=== PATIENT | male | born 1995 | race Caucasian/White ===

== ENCOUNTER 2019-10-25 10:49 | Emergency (ER) | payer OTHER ==
[~2019-10-25] VITALS: Ht 165.1 cm; Wt 73.0 kg
[2019-10-25] MEDS ORDERED: NS 1,000 ML IV ONE (11:30)
[2019-10-25 11:38] LABS: BASO % 0.3 % (0.0-1.0); EOS % 1.2 % (0.0-3.0); HEMATOCRIT 44.4 % (42.0-52.0); HEMOGLOBIN 14.8 g/dl (13.5-17.5); LYMPH # 1.3 10^3/uL (1.5-5.0); LYMPH % 40.1 % (24.0-44.0); MEAN CORPUSCULAR HEMOGLOBIN 31.1 pg (27.0-33.0); MEAN CORPUSCULAR HGB CONC 33.3 g/dl (32.0-36.5); MEAN CORPUSCULAR VOLUME 93.3 fl (80.0-96.0); MONO # 0.3 10^3/uL (0.0-0.8); MONO % 7.8 % (0.0-5.0); NEUTROPHILS # 1.6 10^3/uL (1.5-8.5); NEUTROPHILS % 50.3 % (36.0-66.0); PLATELET COUNT, AUTOMATED 202 10^3/uL (150-450); RED BLOOD COUNT 4.76 10^6/uL (4.30-6.10); WHITE BLOOD COUNT 3.2 10^3/uL (4.0-10.0)
--- NOTE | 2019-10-25 11:49 | REP ---
Clinical: Acute chest pain . Comparison: None . Findings: The mediastinum and cardiac silhouette are stable and within normal limits for portable technique. The lung barrera are clear without acute consolidation, effusion, or pneumothorax. Skeletal structures are intact. Impression: No acute cardiopulmonary process appreciated. Electronically Signed by Roland Hernandez MD 10/25/2019 11:41 A
--- NOTE | 2019-10-25 11:51 | REP ---
Clinical: Multiple syncopal episodes . Comparison: None . Findings: The ventricles, sulci, and cisterns are normal in position and appearance. Dow-white differentiation is maintained. No acute intracranial hemorrhage, mass/mass effect, pathology or trauma/injury. No evidence for acute infarction. No extra-axial fluid collection. Calvarium is intact. Paranasal sinuses and mastoid air cells are clear. Impression: Normal noncontrast head CT. No evidence for acute intracranial pathology or trauma/injury. Electronically Signed by Roland Hernandez MD 10/25/2019 11:43 A
[2019-10-25 12:08] LABS: ALBUMIN 4.2 GM/DL (3.2-5.2); ALT/SGPT 25 U/L (12-78); BILIRUBIN,DIRECT 0.1 MG/DL (0.0-0.2); BILIRUBIN,TOTAL 0.5 MG/DL (0.2-1.0); BLOOD UREA NITROGEN 10 MG/DL (7-18); CALCIUM LEVEL 8.6 MG/DL (8.5-10.1); CARBON DIOXIDE LEVEL 30 MEQ/L (21-32); CHLORIDE LEVEL 108 MEQ/L (98-107); CK-MB VALUE MASS < 1.0 NG/ML (<3.6); CPK CREATINE PHOSPHOKINASE 174 U/L (39-308); CREATININE FOR GFR 0.98 MG/DL (0.70-1.30); FREE T4 0.98 NG/DL (0.76-1.46); GLOMERULAR FILTRATION RATE > 60.0 (>60); GLUCOSE, FASTING 89 MG/DL (70-100); LIPASE 95 U/L (73-393); MB/CK RELATIVE INDEX 0.57 (< OR =4); POTASSIUM SERUM 4.3 MEQ/L (3.5-5.1); SODIUM LEVEL 141 MEQ/L (136-145); TROPONIN I < 0.02 NG/ML (< 0.10)
[2019-10-25 13:23] VITALS: BP 117/58
--- NOTE | 2019-10-25 17:38 | ECGEPIP ---
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
== END 2019-10-25 13:59 | disposition home or self-care (01) ==
LOC: M ED 10:49
DX: R55 Syncope and collapse (principal); R00.1 Bradycardia, unspecified

== ENCOUNTER 2020-01-23 09:28 | Emergency (ER) | payer OTHER ==
[~2020-01-23] VITALS: Ht 165.1 cm; Wt 76.4 kg
[2020-01-23] MEDS ORDERED: EEG (09:49)
--- NOTE | 2020-01-23 10:03 | REP ---
Head CT without contrast: History: Syncope and trauma. Comparison study: Comparison head CT study October 25, 2019. CT findings: Bone window settings demonstrate an intact bony calvarium. There is no evidence of skull fracture or incidental bony calvarial lesion. The visualized paranasal sinuses appear clear. No intraorbital abnormality is seen. On soft tissue window setting images; the lateral, third, and fourth ventricles are normal in size and position. Dow-white differentiation pattern is normal above and below the tentorium. There are is no evidence of intracranial hemorrhage. No mass, edema, infarction, or midline shift is seen. No extra-axial fluid collection is appreciated. Impression: Negative noncontrast head CT. Electronically Signed by Lopez Cortez MD 01/23/2020 09:55 A
[2020-01-23 11:31] VITALS: BP 129/69
== END 2020-01-23 11:45 | disposition home or self-care (01) ==
LOC: M ED 09:28
DX: S00.01XA Abrasion of scalp, initial encounter (principal); Y92.014 Private driveway to single-family (private) house as the place of occurrence of the external cause; Y93.K1 Activity, walking an animal; Y99.9 Unspecified external cause status; R55 Syncope and collapse; R56.9 Unspecified convulsions

== ENCOUNTER → 2022-01-24 | Outpatient (REF) ==
[~2022-01-24] MED LIST: EEG
== END ==
LOC: M PLAIMG 10:06
PROVIDERS: ATTEND Internal Medicine
DX: R06.02 Shortness of breath (principal); M79.671 Pain in right foot